=== PATIENT | female | born 1985 | race Caucasian/White ===

== ENCOUNTER 2018-06-25 18:42 | Inpatient (IN) | payer MEDICAID ==
[~2018-06-25] VITALS: Ht 162.6 cm; Wt 73.0 kg
[2018-06-25] MEDS ORDERED: ONDANSETRON 4MG ODT PO STA (19:50)
[2018-06-25] MEDS ORDERED: SODIUM CHLORIDE 0.9% 1,000 ML IV ONE (19:50)
[2018-06-25 20:52] LABS: BASOPHILS % 0.5 % (0.0-2.0); EOSINOPHILS % 0.3 % (0.0-5.0); HEMATOCRIT. 40.3 % (36.0-48.0); HEMOGLOBIN. 13.4 g/dL (12.0-16.0); LYMPHOCYTES % 9.2 % (20.0-50.0); MEAN CORPUSCULAR HEMOGLOBIN 29.4 pg (28.0-32.0); MEAN CORPUSCULAR VOLUME 88.2 fL (81.0-99.0); MONOCYTES % 4.9 % (2.0-8.0); NEUTROPHILS % 85.1 % (40.0-76.0); PLATELET 269 x1000/uL (130-400); RED BLOOD CELL COUNT 4.56 mill/uL (4.2-5.4); RED CELL DISTRIBUTION WIDTH 13.3 % (11.6-14.6)
[2018-06-25 20:58] LABS: PROTHROMBIN TIME 10.4 sec (9.6-11.0)
[2018-06-25 21:00] LABS: CHLORIDE 106 mEq/L (98-107)
[2018-06-25 21:14] LABS: CLARITY URINE CLEAR (CLEAR); COLOR URINE YELLOW (YELLOW); KETONES URINE NEGATIVE (NEGATIVE); LEUKOCYTE ESTERASE URINE NEGATIVE (NEGATIVE); NITRITE URINE NEGATIVE (NEGATIVE); OCCULT BLOOD URINE TRACE (NEGATIVE); PH URINE 5.5 (4.5-8.0); PROTEIN URINE NEGATIVE (NEGATIVE); SPECIFIC GRAVITY URINE 1.019 (1.005-1.030); UROBILINOGEN URINE 0.2 E.U./dL (0.2-1.0)
[2018-06-25 21:34] LABS: HCG SCREEN NEGATIVE
[2018-06-25] MEDS ORDERED: SODIUM CHLORIDE 0.9% 1000ML BAG (SEPSIS BOLUS) IV NR (21:45)
[2018-06-25] MEDS ORDERED: IOHEXOL-300 100 ML BOTTLE ONE (22:39)
[2018-06-26] MEDS ORDERED: VANCOMYCIN 1 G PREMIX 200 ML IV ONE (00:15)
[2018-06-26] MEDS ORDERED: LEVOFLOXACIN 750MG PREMIX 150 ML IV ONE (00:15)
[2018-06-26] MEDS ORDERED: POTASSIUM CHLORIDE 20MEQ TABLET SR PO ONE (00:45)
[2018-06-26 04:44] VITALS: BP 98/53
[2018-06-26 07:52] VITALS: BP 102/69
[2018-06-26 08:36] LABS: BASOPHILS % 0.5 % (0.0-2.0); EOSINOPHILS % 0.7 % (0.0-5.0); HEMATOCRIT. 38.2 % (36.0-48.0); HEMOGLOBIN. 12.8 g/dL (12.0-16.0); LYMPHOCYTES % 19.9 % (20.0-50.0); MEAN CORPUSCULAR HEMOGLOBIN 29.9 pg (28.0-32.0); MEAN CORPUSCULAR VOLUME 88.8 fL (81.0-99.0); MONOCYTES % 7.8 % (2.0-8.0); NEUTROPHILS % 71.1 % (40.0-76.0); PLATELET 252 x1000/uL (130-400); RED CELL DISTRIBUTION WIDTH 13.4 % (11.6-14.6)
[2018-06-26] MEDS ORDERED: MAGNESIUM/ALUMINUM HYDROXIDE/SIMETHICONE 30ML UDC PO PRN (09:00)
[2018-06-26] MEDS ORDERED: GUAIFENESIN 200MG/10ML SUGAR FREE UDC PO PRN (09:00)
[2018-06-26] MEDS ORDERED: DIPHENHYDRAMINE 50MG/ML VIAL IV PRN (09:00)
[2018-06-26] MEDS ORDERED: ACETAMINOPHEN 325MG TABLET PO PRN (09:00)
[2018-06-26] MEDS ORDERED: ONDANSETRON HCL 4MG/2ML INJ IV PRN (09:00)
[2018-06-26] MEDS ORDERED: CLONIDINE 0.1MG TABLET PO PRN (09:00)
[2018-06-26] MEDS ORDERED: HYDROCODONE/ACETAMINOPHEN 5/325MG TABLET PO PRN (09:00)
[2018-06-26] MEDS ORDERED: DOCUSATE SODIUM 100MG CAPSULE PO PRN (09:00)
[2018-06-26] MEDS ORDERED: IPRATROPIUM/ALBUTEROL 0.5-3(2.5)MG/3ML NEB INH PRN (09:00)
[2018-06-26 09:09] LABS: CHLORIDE 110 mEq/L (98-107)
[2018-06-26 09:36] LABS: PHOSPHORUS 2.1 mg/dL (2.5-4.9)
[2018-06-26] MEDS: ENOXAPARIN 40MG/0.4ML SYR SUBCUT SCH (10:23)
[2018-06-26 11:07] LABS: HEPATITIS B SURFACE ANTIGEN NEGATIVE
[2018-06-26 11:36] LABS: HEPATITIS A AB IGM NEGATIVE (NEGATIVE)
[2018-06-26 11:56] VITALS: BP 98/56
[2018-06-26 15:56] LABS: CREATINE KINASE 90 IU/L (26-192)
[2018-06-26 15:57] LABS: CREATINE KINASE MB FRACTION < 1.0 ng/mL (0.5-3.6)
[2018-06-26 16:00] VITALS: BP 102/58
[2018-06-27] VITALS: BP 109/71
[2018-06-27 00:53] LABS: CREATINE KINASE 72 IU/L (26-192)
[2018-06-27 00:54] LABS: CREATINE KINASE MB FRACTION < 1.0 ng/mL (0.5-3.6)
[2018-06-27 04:00] VITALS: BP 113/67
[2018-06-27 06:29] LABS: BASOPHILS % 0.5 % (0.0-2.0); EOSINOPHILS % 2.6 % (0.0-5.0); HEMATOCRIT. 40.3 % (36.0-48.0); HEMOGLOBIN. 13.5 g/dL (12.0-16.0); LYMPHOCYTES % 28.1 % (20.0-50.0); MEAN CORPUSCULAR HEMOGLOBIN 29.8 pg (28.0-32.0); MEAN CORPUSCULAR VOLUME 89.3 fL (81.0-99.0); MEAN PLATELET VOLUME 9.3 fl (7.4-10.4); MONOCYTES % 7.4 % (2.0-8.0); NEUTROPHILS % 61.4 % (40.0-76.0); PLATELET 273 x1000/uL (130-400); RED BLOOD CELL COUNT 4.52 mill/uL (4.2-5.4); RED CELL DISTRIBUTION WIDTH 13.2 % (11.6-14.6)
[2018-06-27 07:16] LABS: CHLORIDE 109 mEq/L (98-107)
[2018-06-27 07:23] LABS: LDL CHOLESTEROL 74 mg/dL (5-100)
[2018-06-27 07:25] LABS: HDL CHOLESTEROL 48 mg/dL (40-59)
[2018-06-27] MEDS: ENOXAPARIN 40MG/0.4ML SYR SUBCUT SCH (09:00)
[2018-06-27 10:48] VITALS: BP 114/75
[2018-06-28 04:21] LABS: HIV SCREEN 4G Non Reactive (Non Reactive)
== END 2018-06-27 11:20 | disposition home or self-care (01) | DRG 249 ==
LOC: ER 18:42 → 7WST 06-26 00:10 → ENRESERV 06-26 02:36 → 5WST 06-26 22:10
PROVIDERS: ADMIT Internal Medicine; ATTEND Internal Medicine
DX: A08.4 Viral intestinal infection, unspecified (principal); E87.2 Acidosis; Z88.0 Allergy status to penicillin; D72.829 Elevated white blood cell count, unspecified
CPT/HCPCS: 36415; 71045; 74177; 76700; 80048; 80061; 82550; 82553; 83605; 83735; 84100; 84145; 84443; 84703; 86705; 86709; 86803; 87340; 87389; 93005; 93970; 96361; 96365; 96366; 96367; 99291; J1650; J1956; J3370; J7030; Q0162; Q9967